=== PATIENT | male | born 1970 | race Caucasian/White ===

== ENCOUNTER 2017-06-16 10:18 | Emergency (ER) | payer MEDICAID, OTHER ==
[~2017-06-16] VITALS: Wt 70.0 kg
[2017-06-16 11:28] LABS: URINE BLOOD (Dip) POC Negative (NEGATIVE)
[2017-06-16] MEDS ORDERED: CLOT30CR24 TOP (11:44)
--- NOTE | 2017-06-16 11:47 | ERD ---
ER Documentation Chief Complaint Date/Time DATE: 06/16/17 TIME: 11:45 Chief Complaint genital problems with burning sensation for the past month. during sex. HPI This 46-year-old male presents with multiple genital complaints. He said some slight burning and itching which he feels is deep in his urethra for the last month. He denies any blood or penile discharge. He also has itching in the perineal area and the crural area of his groin. He denies any testicular pain or swelling denies any fevers, vomiting, abdominal pain. ROS All systems reviewed and are negative except as per history of present illness. Medications Home Meds Active Scripts Clotrimazole* (Clotrimazole* AF) 1% - 30 Gm Cream.gm., 1 APPLIC TOP BID for 10 Days, TUB Prov:ANNE-MARIE YAN MD 06/16/17 PMhx/Soc Medical and Surgical Hx: Unable to obtain Hx Alcohol Use: Yes Hx Substance Use: No Hx Tobacco Use: No Smoking Status: Never smoker Physical Exam Vitals Vital Signs Date Time Temp Pulse Resp B/P Pulse Ox O2 Delivery O2 Flow Rate FiO2 06/16/17 10:21 98.5 56 20 129/75 98 Physical Exam Const: []Alert, [id number]. Head: Atraumatic Eyes: Normal Conjunctiva ENT: Normal External Ears, Nose and Mouth. Neck: Full range of motion..~ No meningismus. Resp: Clear to auscultation bilaterally Cardio: Regular rate and rhythm, no murmurs Abd: Soft, non tender, non distended. Normal bowel sounds Skin: No petechiae. Possible slight irritation in the crural area. No vesicles, erythema, significant acute abnormalities. Back: No midline or flank tenderness Ext: No cyanosis, or edema Neur: Awake and alert Psych: Normal Mood and Affect Results 24 hrs Laboratory Tests Test 06/16/17 11:34 Bedside Urine pH (LAB) 6.0 Bedside Urine Protein (LAB) Negative Bedside Urine Glucose (UA) Negative Bedside Urine Ketones (LAB) Negative Bedside Urine Blood Negative Bedside Urine Nitrite (LAB) Negative Bedside Urine Leukocyte Esterase (L Negative Current Medications Medications (Trade) Dose Ordered Sig/Sim Route PRN Reason Start Time Stop Time Status Last Admin Dose Admin Azithromycin (Zithromax) 1,000 mg ONCE ONCE PO 06/16/17 12:00 06/16/17 12:01 Ceftriaxone Sodium (Rocephin) 250 mg ONCE ONCE IM 06/16/17 12:00 06/16/17 12:01 Lidocaine (Xylocaine 1% (Mdv) 20 ml) 20 ml ONCE ONCE SC 06/16/17 12:00 06/16/17 12:01 Procedures/MDM Urine is negative for leukocytes, nitrates, glucose, blood. Urine sent for gonorrhea chlamydia. Patient does admit to unprotected sex in the last month. He will be treated empirically for urethritis with Zithromax 1 g here and Rocephin 250 mg IM. Patient will be treated for tinea cruris with Lotrimin as well. Patient was advised to follow-up with primary doctor return to ER for new or worsening symptoms. Patient was advised to avoid unprotected sex for the next week as well and notify any potential partners. Departure Diagnosis: Primary Impression: Dysuria Condition: Stable Patient Instructions: Dysuria, Tinea Cruris, Jock Itch, Urethritis, Male ( Infec Vs Inflam), Adult Additional Instructions: Examines normal hoy. Cheque otro vez con tolbert doctor primario en el proximo baker or regresa para mas o nueva simptomas. ANNE-MARIE YAN MD Jun 16, 2017 11:47
[2017-06-16] MEDS ORDERED: AZITHROMYCIN 250 MG TAB PO ONE (12:00)
[2017-06-16] MEDS ORDERED: LIDOCAINE 1% (MDV) 20 ML INJ SC ONE (12:00)
[2017-06-16] MEDS ORDERED: CEFTRIAXONE 250 MG INJ IM ONE (12:00)
== END 2017-06-16 12:25 | disposition home or self-care (01) ==
LOC: FTE 10:18
DX: R30.0 Dysuria (principal)
CPT/HCPCS: 81003; 87591; 96372; J0696; Z7502; Z7610